=== PATIENT | female | born 1980 | race Caucasian/White ===

== ENCOUNTER 2021-12-06 02:44 | Emergency (ER) | payer OTHER ==
[2021-12-06 04:07] LABS: HEMOGLOBIN 13.4 gm/dl (12.3-15.3); RED BLOOD COUNT 4.56 M/UL (4.00-5.10); WHITE BLOOD COUNT 13.5 K/UL (4.5-11.0)
[2021-12-06 04:28] LABS: BUN/CREATININE RATIO 19 (0-10)
== END 2021-12-06 07:26 ==
LOC: ER1 02:44
PROVIDERS: Physician Assistant
DX: S36.114A Minor laceration of liver, initial encounter (principal); S27.0XXA Traumatic pneumothorax, initial encounter; F17.210 Nicotine dependence, cigarettes, uncomplicated; Z20.822 Contact with and (suspected) exposure to COVID-19; V49.9XXA Car occupant (driver) (passenger) injured in unspecified traffic accident, initial encounter
CPT/HCPCS: 32551; 36415; 70450; 71045; 71260; 72125; 73564; 80053; 83690; 84703; 85025; 86850; 86900; 86901; 93005; 99285; J3010; Q9967; U0002